=== PATIENT | male | born 1950 | race Caucasian/White ===

== ENCOUNTER 2022-10-28 11:38 | Day surgery (SDC) | payer MEDICARE, OTHER ==
[~2022-10-28] VITALS: Ht 177.8 cm; Wt 76.8 kg
--- NOTE | ~2022-10-28 | OR ---
[facility] [address] [place], [place] [address] Draft DATE OF OPERATION: 10/28/2022 SURGEON: Tay Richardson MD PREOPERATIVE DIAGNOSES: 1. Family history of colon cancer (maternal grandfather and maternal grandmother). 2. Diarrhea alternated with constipation without associated bleeding. POSTOPERATIVE DIAGNOSES: 1. Scattered diverticulosis. 2. Small polyp of right colon/cecum. PROCEDURE: Total colonoscopy with intubation of the cecum and cold morcellation excision of cecal polyp. ANESTHESIA: Intravenous sedation, fentanyl 100 mcg and Versed 4 mg total. INDICATION: This 72-year-old white man is a patient of TRISTEN Srivastava and underwent colonoscopy last in 2014. He does have family history of colon cancer in a maternal grandmother and maternal grandfather. He does have diarrhea alternating with constipation, but no blood per rectum per. He is admitted at this time to undergo colonoscopy. He understands the risk of bleeding, infection, and perforation. FINDINGS: The prep was excellent. Complete colonoscopy was undertaken to the cecum without question. Full intubation of the cecum was accomplished. There was a small polyp of the cecum, which was excised with cold morcellation technique but may be hyperplastic rather than adenomatous. The remaining colon had scattered diverticula throughout. There was no evidence of stricture, obstruction, or colitis. DESCRIPTION OF PROCEDURE: The patient was brought to the endoscopy suite and placed in the lateral decubitus position, given intravenous sedation a point of slurred speech and nystagmus. Digital rectal examination was normal. The Olympus video colonoscope was passed in the rectum and manipulated throughout the colon noting diverticular change of the sigmoid and left colon. The scope was PATIENT NAME: VISHAL URBAN OPERATIVE REPORT DATE OF : 50 REPORT #: [id number] PHYSICIAN: TAY RICHARDSON MD PCP: MADISON JORDAN PA-C REPORT IS CONFIDENTIAL AND NOT TO BE RELEASED WITHOUT AUTHORIZATION [facility] [address] [place], [place] [address] Draft ultimately advanced to the cecum. Full intubation of the cecum was accomplished. Irrigation was undertaken. Ileocecal valve and appendiceal orifice were normal. Re-adjustment of the scope allowed for identification of a small polyp which may have been hyperplastic. Narrow band imaging confirmed the polypoid nature of the lesion, but did not better define whether it was adenomatous or not. It was excised with cold morcellation technique. The scope was then withdrawn and examination throughout showed only diverticulosis scattered throughout the colon. Retroflexed view in the rectum was normal. Scope was removed and the patient was taken to the recovery room in good condition. CONCLUDING DIAGNOSIS: Diverticulosis; small polyp cecum excised. PLAN: Recommend repeat colonoscopy in 5 years if the lesion was adenomatous, 7 years if not. We will recommend high-fiber diet or a fiber supplement such as Citrucel or Metamucil given his symptoms of diarrhea alternating with constipation. He will return to the ongoing care of TRISTEN Srivastava. MD PADILLA Alcantara/ALLEY /[id number] cc: Madison Jordan PA-C Copies: MADISON JORDAN PA-C ~ PATIENT NAME: HILARIO URBANJuan Manuel ROSENTHAL OPERATIVE REPORT DATE OF : 50 REPORT #: [id number] PHYSICIAN: TAY RICHARDSON MD PCP: MADISON JORDAN PA-C REPORT IS CONFIDENTIAL AND NOT TO BE RELEASED WITHOUT AUTHORIZATION
[~2022-10-28 11:38] MED LIST: ACYCLOVIR200 MG PO; ASPIRIN EC81 MG PO; FINASTERIDE5 MG PO; LEVOTHYROXINE75 MC1 PO; MELOXICAM15 MG PO; OMEPRAZOLE20 MG PO; SIMVASTATIN20 MG; TADALAFIL10 MG PO
[2022-10-28] MEDS ORDERED: DAILY VALUE1 EACH PO (12:02)
[2022-10-28] MEDS ORDERED: ACYCLOVIR15 GM TOP (12:02)
--- NOTE | 2022-10-28 14:27 | NUR ---
10/28/22 1427 Valeria Bowman 1333 PT ARRIVED IN PACU AWAKE WITH NO C/O'S. ABD SOFT AND PASSING FLATUS. 1345 DR AT BEDSIDE. ALL QUESTIONS ANSWERED. 1400 SIPPING ON WATER AT BEDSIDE. DC INSTRUCTIONS GIVEN. 1420 LEFT VIA W/C. INSTRUCTIONS GIVEN TO AT CAR.
--- NOTE | 2022-10-30 11:48 | PATH ---
[facility] [address] [place], [place] [address] Signed SPECIMEN(S): A CECUM COLON MUCOSAL LESION SPECIMEN SOURCE: A. CECUM COLON MUCOSAL LESION CLINICAL HISTORY: Pre: History of diarrhea and constipation alternating, weight loss of 14 lbs over several months, family history of colon cancer. Post: Diverticulosis, small cecal polyp. FINAL PATHOLOGIC DIAGNOSIS: Cecum colon mucosal lesion: - Tubular adenoma (three fragments). JVR:royce:C2NR MICROSCOPIC EXAMINATION: Histologic sections of all submitted blocks are examined by light microscopy. These findings, together with the gross examination, support the pathologic diagnosis. GROSS DESCRIPTION: The specimen, labeled and designated "Richi, cecum mucosa lesion biopsy," is received in formalin and consists of three nur soft tissue fragments, ranging from 0.1-0.2 cm. Entirely submitted in (A1). JS (under the direct supervision of a pathologist) The Gross Description was prepared using a voice recognition system. The report was reviewed for accuracy; however, sound-alike word errors, addition and/or deletions may occur. If there is any question about this report, please contact Client Services. PERFORMING LABORATORY: The technical component was performed by [facility], [address] [place] [id number] (CLIA# [id number]). Professional interpretation was performed by [facility], [address] [place] [id number] (CLIA#: [id number]). Diagnostician: Brenden Bartholomew MD Pathologist Electronically Signed 10/30/2022 PATIENT NAME: VISHAL URBAN PATHOLOGY DATE OF : 50 REPORT #: [id number] PHYSICIAN: DANIEL PATHOLOGY PCP: EDILIA HOLDER PA-C REPORT IS CONFIDENTIAL AND NOT TO BE RELEASED WITHOUT AUTHORIZATION [address] [place] [address] Signed Copies: ~ PATIENT NAME: VISHAL URBAN PATHOLOGY DATE OF : 50 REPORT #: [id number] PHYSICIAN: DANIEL PATHOLOGY PCP: EDILIA HOLDER PA-C REPORT IS CONFIDENTIAL AND NOT TO BE RELEASED WITHOUT AUTHORIZATION
== END 2022-10-28 14:20 | disposition home or self-care (01) ==
LOC: OPS 11:38 → DS 11:44 → OPS 13:00 → DS 13:00 → OPS 14:20 → DS 11-22 07:30
PROVIDERS: ATTEND Surgery
PROC: 0DBH8ZZ Excision of Cecum, Via Natural or Artificial Opening Endoscopic (ICD-10-PCS; principal; 2022-10-28 13:00)
DX: K57.30 Diverticulosis of large intestine without perforation or abscess without bleeding (principal); K52.9 Noninfective gastroenteritis and colitis, unspecified; Z80.0 Family history of malignant neoplasm of digestive organs; D12.0 Benign neoplasm of cecum
CPT/HCPCS: 88305; 99153; G0500; J2250; J3010; J7121

== ENCOUNTER 2024-11-19 23:47 | Emergency (ER) | payer MEDICARE, OTHER ==
[~2024-11-19] VITALS: Ht 177.8 cm; Wt 82.9 kg
[~2024-11-19 23:47] MED LIST changes: +ACYCLOVIR15 GM TOP; +DAILY VALUE1 EACH PO
[2024-11-19] MEDS ORDERED: HYDROXYZINE HCL25 MG PO (23:59)
[2024-11-20 02:30] VITALS: BP 153/89
== END 2024-11-20 02:30 | disposition home or self-care (01) ==
LOC: ED 23:47
DX: T18.0XXA Foreign body in mouth, initial encounter (principal); K21.9 Gastro-esophageal reflux disease without esophagitis; E78.00 Pure hypercholesterolemia, unspecified; W44.8XXA Other foreign body entering into or through a natural orifice, initial encounter; Z79.899 Other long term (current) drug therapy; Z91.010 Allergy to peanuts
CPT/HCPCS: 70491; 99283-25; Q9967